=== PATIENT | male | born 1965 | race Two or more races ===

== ENCOUNTER 2017-03-19 13:51 | Emergency (ER) | payer OTHER ==
[~2017-03-19] VITALS: Ht 180.3 cm; Wt 99.8 kg
[2017-03-19 14:05] VITALS: BP 149/83
[2017-03-19] MEDS ORDERED: DIPHTH,PERTUSS(ACELL),TET TOX 0.5 ML DISP.SYRIN. VAX IM ONE (14:30)
[2017-03-19] MEDS ORDERED: LIDOCAINE 1%/EPI 1:100,000 20 ML VIAL. INJ ONE (14:30)
[2017-03-19] MEDS ORDERED: DOXY100C2 PO (14:52)
--- NOTE | 2017-03-19 14:52 | PHYS DOC ---
Past Medical History Past Medical History: No Pertinent History Past Surgical History: Other Additional Past Surgical Histo: shoulder Alcohol Use: None Drug Use: None Adult General Chief Complaint Chief Complaint: LACERATION/AVULSION [facility] HPI Patient is a 51 year old male presents to the emergency department stating that he has a laceration that is 3 inches in length. The depth is approximately 2 inches. Patient does have significant bleeding noted. Patient states that he cut this arm with a box knife. He was doing training in which he was cutting some material when he cut himself. Patient states he has right-hand dominant. He is unsure when his last tetanus immunization occurred. Review of Systems Review of Systems Constitutional: Denies fever or chills [] Eyes: Denies change in visual acuity, redness, or eye pain [] HENT: Denies nasal congestion or sore throat [] Respiratory: Denies cough or shortness of breath [] Cardiovascular: No additional information not addressed in HPI [] GI: Denies abdominal pain, nausea, vomiting, bloody stools or diarrhea [] : Denies dysuria or hematuria [] Musculoskeletal: Denies back pain or joint pain [] Integument: Denies rash or skin lesions. Laceration to the left forearm. Neurologic: Denies headache, focal weakness or sensory changes [] Endocrine: Denies polyuria or polydipsia [] Current Medications Current Medications Current Medications Medications (Trade) Dose Ordered Sig/Joce Start Time Stop Time Status Last Admin Dose Admin Diphtheria/ Tetanus/Acell Pertussis (Boostrix) 0.5 ml ONCE ONCE 03/19/17 14:30 03/19/17 14:31 DC 03/19/17 14:36 0.5 ML Lidocaine/ Epinephrine (Xylocaine 1%-Epi 1:100,000) 20 ml 1X ONCE 03/19/17 14:30 03/19/17 14:31 DC 03/19/17 14:24 20 ML Allergies Allergies Allergies Coded Allergies Type Severity Reaction Last Updated Verified morphine Allergy Intermediate 03/19/17 Yes Physical Exam Physical Exam Constitutional: Well developed, well nourished, no acute distress, non-toxic appearance. [] HENT: Normocephalic, atraumatic, bilateral external ears normal, oropharynx moist, no oral exudates, nose normal. [] Eyes: PERRLA, EOMI, conjunctiva normal, no discharge. [] Neck: Normal range of motion, no tenderness, supple, no stridor. [] Cardiovascular:Heart rate regular rhythm Lungs & Thorax: No respiratory distress noted Skin: Warm, dry, no erythema, no rash. Patient with 3 inch laceration to the left forearm. Depth is approximately 2 inches. Back: No tenderness Extremities: No tenderness, no cyanosis, no clubbing, ROM intact, no edema. [] Neurologic: Alert and oriented X 3, normal motor function, normal sensory function, no focal deficits noted. [] Psychologic: Affect normal, judgement normal, mood normal. [] Current Patient Data Vital Signs Vital Signs Date Time Temp Pulse Resp B/P (MAP) Pulse Ox O2 Delivery O2 Flow Rate FiO2 03/19/17 14:05 98.2 93 20 149/83 (105) 97 Room Air 98.2 EKG EKG [] Radiology/Procedures Radiology/Procedures [] Course & Med Decision Making Course & Med Decision Making Pertinent Labs and Imaging studies reviewed. (See chart for details) Patient will be discharged home in stable condition she'll be placed on doxycycline for potential infection. Patient will be instructed to keep the area clean and dry clean the site twice a soap and water and apply antibiotic ointment to the area. Patient was encouraged to follow-up with his primary care physician in the next 3-5 days. Signs and symptoms of infection was provided such as redness, warmth, tenderness or any yellow/greenish transient become from the site physician occur follow-up to primary care physician immediately. Patient was also encouraged to use Tylenol or ibuprofen for pain and discomfort. Ice packs on 20 minutes off 20 minutes several times a day. Elevation as much as possible. All questions and concerns was answered at patient's bedside. [] Dragon Disclaimer Dragon Disclaimer This electronic medical record was generated, in whole or in part, using a voice recognition dictation system. Departure Departure Impression: Primary Impression: Laceration of left forearm Disposition: 01 HOME, SELF-CARE Condition: STABLE Referrals: NO PCP (PCP) Patient Instructions: Laceration Care, Adult, [id number] Additional Instructions: Keep the area clean and dry. Clean the site twice daily with soap and water and apply antibiotic ointment to the area. Watch for signs and symptoms of infection: Redness, warmth, tenderness or any yellowishgreenish drainage of a come from the site physician occur follow-up through primary care physician immediately. Ice packs on 20 minutes off 20 minutes several times a day. Tylenol or ibuprofen for pain and discomfort. Antibiotics as prescribed. Follow-up to primary care physician or your work comp physician in the next 3-5 days. Return back to emergency prior signs symptoms of become worse. Scripts Doxycycline Hyclate (DOXYCYCLINE HYCLATE) 100 Mg Capsule 1 CAP PO BID, #20 CAP Prov: ANDRÉS CAMACHO APRN 03/19/17 Laceration/Wound Repair Laceration/Wound Repair : Wound Location: upper extremity Wound's Depth, Shape: into muscle Wound Length (cm): 7 Wound Explored: clean Irrigated w/ Saline (ccs): 100 Anesthesia: Lidocaine w/ Epi Volume Anesthetic (ccs): 8 Wound Debrided: minimal Suture Size/Type: 5:0 Layer Closure?: Yes Deep Layer Suture Size/Type: 5:0 Number Deep Layer Sutures: 4 Progress Site was irrigated with 100 mL of normal saline with no foreign bodies noted in the site. Site was then injected with lidocaine with epi approximately 8 mL. 5- 0 Vic[address] was used to place 4 sutures for later closing. 12 kavitha was placed on the outer skin area. Patient tolerated the procedure well. Problem Qualifiers Primary Impression: Laceration of left forearm Encounter type: initial encounter Qualified Codes: S51.812A - Laceration without foreign body of left forearm, initial encounter ANDRÉS CAMACHO APRN Mar 19, 2017 14:52
== END 2017-03-19 14:55 | disposition home or self-care (01) ==
LOC: ER 13:51
DX: S51.812A Laceration without foreign body of left forearm, initial encounter (principal); Z88.5 Allergy status to narcotic agent; W26.0XXA Contact with knife, initial encounter; Y93.89 Activity, other specified; Y92.89 Other specified places as the place of occurrence of the external cause; Y99.8 Other external cause status
CPT/HCPCS: 12002; 90471; 90715; 99283; J3490